=== PATIENT | female | born 1985 | race Asian ===

== ENCOUNTER → 2024-09-03 | Outpatient (CLI) | payer OTHER, SELFPAY ==
--- NOTE | 2024-09-03 | XR_ITS ---
Examination: Diagnostic digital mammography, bilateral Computer aided detection 3-D breast Tomosynthesis, bilateral Date and time of exam: September 03, 2024 1428 hours INDICATIONS: Bilateral breast lumps noticed beginning 3 months ago Technique: Nonmagnified MLO, CC views of the breasts to been obtained, reconstructed from 3-D Tomosynthesis images. R2 computer aided detection program utilized for evaluation of suspicious masses and/or abnormal calcifications. 3-D Tomosynthesis images obtained. Findings: The breasts are heterogeneously dense, which may obscure small masses Benign calcifications No definite suspicious masses Breast sonography today demonstrates multiple circumscribed small benign appearing nodules in the right breast Impression: BI-RADS Category 2: Benign findings Recommend yearly follow-up mammography Please see the right breast sonogram report today indicating probably benign BI-RADS 3 nodules right breast, 6 month right breast sonogram follow-up needed
--- NOTE | 2024-09-03 14:21 | XR_ITS ---
Examination: Breast ultrasound complete, bilateral Date and time of exam: September 03, 2024 1435 hours INDICATIONS: Multiple right breast lumps in the 12:00 position and left breast and upper outer region noticed beginning 2 days ago Technique: Real-time grayscale ultrasonographic imaging bilateral breasts, including all 4 quadrants as well as nipple retroareolar and axillary regions. Findings: Sonographic images right breast 12:00 nodule lobular margins 3 x 3 mm 1:00 nodule circumscribed 6 x 6 mm 1:00 nodule circumscribed 4 x 3 mm 2:00 nodule circumscribed 3 x 5 mm Sonographic images left breast No cystic or solid mass IMPRESSION: BI-RADS Category 3: Probably benign findings One additional 6 month right breast sonogram follow-up is needed to document stability of solid nodules described above
== END | disposition home or self-care (01) ==
PROVIDERS: PCP Internal Medicine; Referring Provider Physician Assistant Medical; Visit Provider Physician Assistant Medical
DX: R92.323 Mammographic fibroglandular density, bilateral breasts (principal); N63.15 Unspecified lump in the right breast, overlapping quadrants; N63.11 Unspecified lump in the right breast, upper outer quadrant
CPT/HCPCS: 76641; 77062; 77066; G0279

== ENCOUNTER 2024-09-23 20:38 | Emergency (ER) | payer OTHER, SELFPAY ==
[2024-09-23 21:30] VITALS: BP 111/76; PULSE 71; RESP 16; TEMP 36.8; O2SAT 97
[2024-09-23 23:40] LABS: HIV (1&2) Antibody Rapid Non-Reactive
[2024-09-24 00:04] LABS: Hepatitis B Surface Ab Reactive (Immune) (Immune); Hepatitis C Antibody Non Reactive (Non React)
--- NOTE | 2024-09-24 03:55 | PD.EDRECHK ---
ED Recheck Abnl Lab Rx-RME/HPI General Chief Complaint: General Adult/Misc Complain Stated Complaint: splashed in face with blood Time Seen by Provider: 09/23/24 21:38 Arrival date/time: 09/23/24 20:38 39F with no significant PMH presents to ED with evaluation after patient got blood on her. 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 Patient does not believe she got any in her mouth (no taste of blood) or in her eyes (she could see fine). Patient immediately showered afterward. Patient is UTD on vaccinations. HIV status of patient is negative. Limitations: no limitations Related Data Allergies Allergy/AdvReac Type Severity Reaction Status Date / Time shellfish derived Allergy Severe DIFF Verified 06/19/19 11:55 BREATHING SHRIMP Allergy Severe DIFF Uncoded 06/19/19 11:55 BREATHING Review of Systems Review of Systems Systems Reviewed: All systems reviewed, normal except as documented Constitutional Constitutional: Reports system reviewed and no additional complaints, except as documented, Denies fever(s) and Denies headache(s) ENT Ears, Nose, Mouth, and Throat: Denies disequilibrium and Denies headache(s) Cardiovascular Cardiovascular: Reports system reviewed and no additional complaints, except as documented, Denies chest pain and Denies dyspnea Respiratory Respiratory: Reports system reviewed and no additional complaints, except as documented, Denies cough and Denies dyspnea Gastrointestinal Gastrointestinal: Reports system reviewed and no additional complaints, except as documented, Denies abdominal pain, Denies nausea and Denies vomiting Neurologic Neurologic: Reports system reviewed and no additional complaints, except as documented, Denies confusion, Denies disequilibrium and Denies headache(s) Psychiatric Psychiatric: Denies confusion Past Medical History Past Medical History CARDIAC: Negative Congestive Heart Failure RESPIRATORY: Negative Chronic Obstructive Pulmonary Disease (COPD) GASTROINTESTINAL: Positive Gastrointestinal Disorders (gastritis) GENITOURINARY: Negative Renal Disease ENDOCRINE: Negative Diabetes Mellitus Type 1 or Diabetes Mellitus Type 2 Social History SMOKING STATUS: Never smoker ED Exam General Limitations: Present no limitations General appearance: Present alert and in no apparent distress Head Head exam: Present atraumatic Eye Eye exam: Present normal appearance, PERRL and EOMI ENT ENT exam: Present normal exam, normal oropharynx and mucous membranes moist Neck Neck exam: Present normal inspection, full ROM and trachea midline Chest Chest inspection: Present normal inspection and symmetric chest wall rise Respiratory Respiratory exam: Present normal lung sounds bilaterally Cardiovascular Cardiovascular exam: Present regular rate, normal rhythm and normal heart sounds Abdominal Exam Abdominal exam: Present soft and normal bowel sounds Extremities Exam Extremities exam: Present normal inspection and full ROM Back Exam Back exam: Present normal inspection and full ROM Neurological Exam Neurological exam: Present alert, oriented X3 and CN II-XII intact Psychiatric Psychiatric exam: Present normal affect and normal mood Skin Skin exam: Present warm, dry, intact and normal color Course Quality Measures none Orders Category Date Time Status HIV (1&2) Antibody Rapid Stat Lab 09/23/24 22:45 Completed Hepatitis B Surface Ab Stat Lab 09/23/24 22:45 Completed Hepatitis C Antibody Stat Lab 09/23/24 22:45 Completed Vital Signs Vital signs: Vital Signs Temperature 98.3 F 09/23/24 21:30 Pulse Rate 71 09/23/24 21:30 Respiratory Rate 16 09/23/24 21:30 Blood Pressure 111/76 09/23/24 21:30 Pulse Oximetry (%) 97 09/23/24 21:30 Oxygen Delivery Method Room Air 09/23/24 21:30 O2 at 97% on RA and WNLs Recheck / Abnormal Lab / Rx MDM Narrative MDM Narrative:: 39F with no significant PMH presents to ED with evaluation after patient got blood on her. 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 Patient does not believe she got any in her mouth (no taste of blood) or in her eyes (she could see fine). Patient immediately showered afterward. Patient is UTD on vaccinations. HIV status of patient is negative. Physical exam reveals clear conjunctiva. Normal speech and WOB. Patient is afebrile, calm, and alert. HIV neg. Hep C neg. Hep B titer+. Patient declined tdap given UTD and no open wounds. Patient also declined Hep B vaccine/IG given +titer. Patient also declined HIV PEP given source of exposure is HIV neg. 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 Patient data External records reviewed:: [facility] previous records Clinical information provided by:: patient Social determinants that could affect healthcare access:: none Patient has the following chronic illnesses:: none How is presenting disease/condition affected by chronic disease/condition?: no chronic disease Evaluation data The following diagnostics were reviewed and interpreted by me:: lab results Lab and/or radiology exams considered but not ordered:: ordered Interpretation Summary: above Medications / Prescriptions Medications or Prescriptions considered but not ordered:: not ordered Medication administrations:: n/a Consultations Consultation(s) initiated? (list below): No Diagnosis Recheck Differential Diagnosis: encounter for medication refill, encounter for wound recheck, encounter for recheck of burn, encounter for removal of sutures, warfarin-induced coagulopathy and other (exposure of hazardous bodily fluids) Most likely diagnosis given after review of the tests above:: exposure of hazardous bodily fluids Admission Indicated Admission indicated?: not indicated Admission Request Was there a request for admission?: No Disposition Plan Disposition Plan: Discharge Discharge Attestation Discharge Attestation: The patient and all family members were given an opportunity to ask questions and understood the discharge instructions. Discharge instructions specifically effects, indications for sooner follow up or return to the emergency department, and the expected course of current diagnosis. 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 Print Language: Micronesian Stand Alone Forms: Patient Portal Info Letter DEREK/KYLEE Supervising Physician KIMBERLY Supervising Physician: Dr. Yoo
== END 2024-09-24 00:16 | disposition home or self-care (01) ==
PROVIDERS: Physician Assistant; Emergency Provider Emergency Medicine; PCP Internal Medicine
DX: Z04.89 Encounter for examination and observation for other specified reasons (principal); Z77.21 Contact with and (suspected) exposure to potentially hazardous body fluids; Z71.89 Other specified counseling
CPT/HCPCS: 36415; 86703; 86706; 86803; 99283

== ENCOUNTER 2024-10-28 23:03 | Emergency (ER) | payer OTHER, SELFPAY ==
[2024-10-28 23:04] VITALS: BMI 25.9
[2024-10-28 23:41] VITALS: BP 102/66; PULSE 66; RESP 16; TEMP 36.7; O2SAT 97
--- NOTE | 2024-10-28 23:47 | PD.EDABDPN ---
ED Abdominal Pain RME/HPI General Chief Complaint: Abdominal Pain Stated complaint: ABD PAIN Time seen by provider: 10/28/24 23:45 Arrival date/time: 10/28/24 23:03 39F with history of endometriosis and GERD presents to ED with 1 day of upper ab pain after she ate something. Patient denies N/V, diarrhea, and dysuria. Patient is on her cycle. Limitations: no limitations Related Data Allergies Allergy/AdvReac Type Severity Reaction Status Date / Time shellfish derived Allergy Severe DIFF Verified 10/28/24 23:08 BREATHING SHRIMP Allergy Severe DIFF Uncoded 10/28/24 23:08 BREATHING Review of Systems Review of Systems Systems Reviewed: All systems reviewed, normal except as documented Gastrointestinal Gastrointestinal: Reports as per HPI and Reports abdominal pain Past Medical History Past Medical History CARDIAC: Negative Congestive Heart Failure RESPIRATORY: Negative Chronic Obstructive Pulmonary Disease (COPD) GASTROINTESTINAL: Positive Gastrointestinal Disorders (gastritis) GENITOURINARY: Negative Renal Disease ENDOCRINE: Negative Diabetes Mellitus Type 1 or Diabetes Mellitus Type 2 Social History SMOKING STATUS: Never smoker ED Exam General Limitations: Present no limitations General appearance: Present alert and in no apparent distress Head Head exam: Present atraumatic ENT ENT exam: Present normal exam, normal oropharynx and mucous membranes moist Neck Neck exam: Present normal inspection, full ROM and trachea midline Abdominal Exam Abdominal exam: Present soft and normal bowel sounds Neurological Exam Neurological exam: Present alert and oriented X3 Psychiatric Psychiatric exam: Present normal affect and normal mood Skin Skin exam: Present warm, dry, intact and normal color Course Quality Measures none Orders Category Date Time Status US gall bladder Stat Exams 10/29/24 00:54 Taken Amylase Stat Lab 10/28/24 23:58 Completed CBC Stat Lab 10/28/24 23:58 Completed CMP [Comprehensive Metabolic Panel] Stat Lab 10/28/24 23:58 Completed HCG Qualitative,Urine Stat Lab 10/29/24 00:06 Completed Urinalysis, C/S if Indicated Stat Lab 10/29/24 00:06 Completed Famotidine [Pepcid] Med 10/28/24 23:46 Discontinued 40 mg PO X1 ONE mg Hyd/Al Hyd/Lexy Susp [Maalox Susp] Med 10/28/24 23:46 Discontinued 30 ml PO X1 ONE Vital Signs Vital signs: Vital Signs Temperature 98.1 F 10/28/24 23:41 Pulse Rate 66 10/28/24 23:41 Respiratory Rate 16 10/28/24 23:41 Blood Pressure 102/66 10/28/24 23:41 Pulse Oximetry (%) 97 10/28/24 23:41 Oxygen Delivery Method Room Air 10/28/24 23:41 O2 at 97% on RA and WNLs Abdominal Pain MDM MDM Narrative MDM Narrative:: 39F with history of endometriosis and GERD presents to ED with 1 day of upper ab pain after she ate something. Patient denies N/V, diarrhea, and dysuria. Patient is on her cycle. Physical exam reveals no focal ab tenderness. Patient is afebrile, alert, but appears uncomfortable. Telerad US unremarkable. No leukocytosis. CMP unremarkable. Amylase normal. UA some blood, but no UTI. HCG neg. GI cocktail relieved symptoms. Patient declines further work-up including CT. Patient data External records reviewed:: [facility] previous records Clinical information provided by:: patient Social determinants that could affect healthcare access:: none Patient has the following chronic illnesses:: endometriosis and GERD How is presenting disease/condition affected by chronic disease/condition?: exacerbated by Evaluation data The following diagnostics were reviewed and interpreted by me:: lab results and radiology exam(s) Lab and/or radiology exams considered but not ordered:: ordered Interpretation Summary: above Medications / Prescriptions Medications or Prescriptions considered but not ordered:: ordered Medication administrations:: Medication Administration History Discontinued Medications Al Hydrox/Mg Hydrox/Simethicone (Mg Hyd/Al Hyd/Leyx (Maalox Reg) Susp 30 Ml Udc) 30 ml PO X1 ONE Stop: 10/28/24 23:47 Last Admin: 10/29/24 00:03 Dose: 30 ml Documented By: CELINA Famotidine (Famotidine 20 Mg Tablet) 40 mg PO X1 ONE Stop: 10/28/24 23:47 Last Admin: 10/29/24 00:03 Dose: 40 mg Documented By: CELINA above Consultations Consultation(s) initiated? (list below): No Diagnosis Differential diagnosis abdominal pain: abdominal pain, acute appendicitis, calculus of kidney, constipation, diverticulitis, endometriosis, gastroenteritis, pancreatitis, small bowel obstruction and other (gastritis and ab pain) Most likely diagnosis given after review of the tests above:: gastritis and ab pain Admission Indicated Admission indicated?: not indicated Admission Request Was there a request for admission?: No Disposition Plan Disposition Plan: Discharge Discharge Attestation Discharge Attestation: The patient and all family members were given an opportunity to ask questions and understood the discharge instructions. Discharge instructions specifically effects, indications for sooner follow up or return to the emergency department, and the expected course of current diagnosis. Patient condition: Stable Discharge Plan Plan Patient Disposition: HOME (Self Care) Discharge Disposition comment: Stable Prescriptions/Referrals Referrals: Tomy Tanner [Primary Care Provider] - In 1 week Problem List Clinical Impression: Abdominal pain, Gastritis Patient/Caregiver Discharge Instructions Education Materials: ED Abdominal Pain Unkn Cause Fem, ED Gastritis (Adult) Additional Instructions: Please follow-up with PCP within 24-48 hours and return immediately if symptoms worsen. Print Language: Uruguayan Stand Alone Forms: Patient Portal Info Letter DEREK/KYLEE Supervising Physician DEREK/KYLEE Supervising Physician: Dr. Yoo
[2024-10-29] MEDS: FAMOTIDINE 20 MG TABLET 40 MG PO (00:03)
[2024-10-29] MEDS: MG HYD/AL HYD/SIME (Maalox Reg) SUSP 30 ML UDC PO (00:03)
[2024-10-29 00:19] LABS: Collection Type, Urine Clean Catch
[2024-10-29 00:23] LABS: Basophils # (Auto) 0.0 Thou/mm3 (0.0-0.2); Basophils % (Auto) 1 % (0-2.5); Eosinophils # (Auto) 0.2 Thou/mm3 (0.0-0.5); Eosinophils % (Auto) 4 % (0-10); Hematocrit 39.4 % (36.0-46.0); Hemoglobin 12.8 g/dL (12.0-16.0); Immature Granulocytes Auto 0.02 Thou/mm3 (0.00-0.00); Lymphocytes # (Auto) 1.8 Thou/mm3 (1.0-4.8); Lymphocytes % (Auto) 30 % (10-50); Mean Corpuscular HGB Conc 32.5 g/dl (31.0-37.0); Mean Corpuscular Hemoglobin 29.9 pg (25.0-35.0); Mean Corpuscular Volume 92 fL (80-100); Monocytes # (Auto) 0.7 Thou/mm3 (0.0-0.8); Monocytes % (Auto) 12 % (0-12); Neutrophils # (Auto) 3.4 Thou/mm3 (1.8-7.7); Neutrophils % (Auto) 54 % (37-80); Nucleated Red Blood Cell # 0.00 Thou/mm3 (0.00-0.00); Nucleated Red Blood Cell % 0 /100 WBC (0); Platelet Count 188 Thou/mm3 (140-440); RDW Standard Deviation 44.1 fL (36.4-46.3); Red Blood Count 4.28 Miln/mm3 (4.00-5.20); White Blood Count 6.2 Thou/mm3 (3.6-11.0)
[2024-10-29 00:24] LABS: Bilirubin,Urine Negative (Negative); Blood,Urine 1+ (Negative); Clarity,Urine Clear (Clear/Hazy); Color,Urine Lt-Yellow (Lt Yel-Yel); Culture Indicated,Urine Not Indicated; Glucose, Urine Negative (Negative); Ketones,Urine Negative (Negative); Leukocyte Esterase,Urine Negative (Negative); Nitrite,Urine Negative (Negative); PH,Urine 6.0 (5.0-7.0); Protein,Urine Negative (Neg - Trace); RBC,Urine 3 /hpf (0-3); Specific Gravity,Urine 1.034 (1.001-1.035); Squamous Epithelial Cell,Urine 1 /hpf (0-5); Urobilinogen,Urine Negative mg/dL (0.0-1.0); WBC,Urine 1 /hpf (0-5)
[2024-10-29 00:30] LABS: HCG Qualitative,Urine Negative
[2024-10-29 00:35] LABS: Alanine Aminotransferase 13 U/L (10-49); Albumin, Serum 4.3 gm/dL (3.5-5.0); Albumin/Globulin Ratio 1.7 (1.2-2.2); Alkaline Phosphatase 76 U/L (46-116); Amylase 105 U/L (30-118); Anion Gap 9 (7-16); Aspartate Amino Transferase 23 U/L (0-34); BUN/Creatinine Ratio 20 Ratio (12-20); Bilirubin,Total 0.4 mg/dL (0.3-1.2); Blood Urea Nitrogen 20 mg/dL (9-23); Calcium 9.5 mg/dL (8.3-10.6); Calcium (Corrected) 9.5 mg/dL (8.5-10.1); Carbon Dioxide 27.4 mMol/L (20.0-31.0); Chloride 106 mMol/L (98-107); Creatinine (Component) 1.0 mg/dL (0.6-1.3); Estimated Creatinine Clearance 67.2 mL/min (>60); Globulin 2.6 gm/dL (2.3-3.5); Glucose 95 mg/dL (74-106); Osmolality,Calculated 285 (275-295); Potassium 3.4 mMol/L (3.4-5.1); Sodium 142 mMol/L (136-145); Total Protein 6.9 gm/dL (5.7-8.2); eGFR > 60 See Note
--- NOTE | 2024-10-29 00:54 | XR_ITS ---
Examination: Abdomen sonogram, Limited Date and time of exam: October 29, 2024 0104 hrs. Indications: Right upper abdominal pain beginning 4:00 PM yesterday Technique: Real-time benjamin scale transabdominal sonographic images of the upper abdomen obtained. Findings: Normal gallbladder. Normal common bile duct 0.31 cm Pancreatic head 1.4 cm Liver 14.7 cm no focal liver lesions Normal hepatopedal portal venous flow Patent IVC Impression: Normal gallbladder
[2024-10-29 01:47] VITALS: RESP 16
--- NOTE | 2024-10-29 02:35 | PRELIM_ITS ---
Right upper quadrant abdominal ultrasound with Doppler and wave Doppler spectral analysis. October 29, 2024 at 0104 hours Clinical history: Right upper quadrant/epigastric pain. Technique: Grayscale and color flow images of the right upper quadrant are provided. Hepatic and portal veins were also imaged with color flow images. Comparison: No prior study is available for comparison. Findings: The liver is normal in echogenicity. No intrahepatic biliary ductal dilatation. No gallbladder calculus, wall thickening or pericholecystic fluid is demonstrated. The common bile duct is normal in caliber at 3.1 mm. The pancreas is unremarkable to the extent visualized. The imaged portions of the right kidney are within normal limits. The portal vein is patent with hepatopetal flow and normal with Doppler spectral analysis. The inferior vena cava is patent with hepatopetal flow and normal with Doppler spectral analysis. Solorzano sign is not available at the time of this report. Impression: Unremarkable right upper quadrant ultrasound examination. No evidence of acute cholecystitis. Report Electronically Signed By: Tristian Hernandez 10/29/2024 2:34:38 AM [EST]
== END 2024-10-29 01:48 | disposition home or self-care (01) ==
PROVIDERS: Physician Assistant; Emergency Provider Emergency Medicine; PCP Internal Medicine
DX: K29.70 Gastritis, unspecified, without bleeding (principal)
CPT/HCPCS: 36415; 76705; 80053; 81001; 81025; 82150; 85025; 99283; A9270

== ENCOUNTER 2024-10-29 03:44 | Inpatient (IN) | payer OTHER, SELFPAY ==
[2024-10-29] VITALS (7 sets, daily range): BP systolic 92–128; BP diastolic 63–91; PULSE 52–117; RESP 16–18; TEMP 35.7–37; O2SAT 93–100; BMI 25.9; BMI 25.7; BMI 27.3
--- NOTE | 2024-10-29 04:04 | EDNOTE_ITS ---
ED Abdominal Pain RME/HPI General Chief Complaint: Abdominal Pain Stated complaint: PERSISTANT ABD PAIN Time seen by provider: 10/29/24 03:57 Arrival date/time: 10/29/24 03:44 RME / HPI RME / HPI narrative: Dr. Yoo?s Main ED Evaluation: 39yo female with no significant past medical history presents to the ED for a chief complaint of worsening diffuse abdominal pain. Patient was seen here earlier tonight for abdominal pain and was discharged home after her symptoms resolved. Patient states she went home and went to sleep when she was awoken with worsening abdominal pain that radiates to her back at 0300. Pain is described as burning in nature. She denies any nausea, vomiting, fever, chills, or any other associated symptoms. Allergies: shrimp Related Data Allergies Allergy/AdvReac Type Severity Reaction Status Date / Time shellfish derived Allergy Severe DIFF Verified 10/29/24 03:47 BREATHING SHRIMP Allergy Severe DIFF Uncoded 10/29/24 03:47 BREATHING Review of Systems Review of Systems Systems Reviewed: All systems reviewed, normal except as documented ED Exam Narrative Physical exam: Generally patient is alert and in mild to moderate distress secondary to pain, heart regular rate and rhythm, lungs clear to auscultation equal bilaterally, abdomen soft bowel sounds present diffusely tender without obvious rebound. There was guarding. No obvious distention. Muscular skeletal exam showed no costovertebral angle tenderness. Skin is warm pale and dry without rash. Neurologic exam Karuna Coma Scale of 15. Course Quality Measures none Orders Category Date Time Status CT abdomen pelvis wo con Stat Exams 10/29/24 04:05 Taken Lactic Acid [Lactate (Lactic Acid)] Stat Lab 10/29/24 05:20 Ordered Ketorolac Inj [Toradol Inj] Med 10/29/24 04:05 Discontinued 60 mg IM X1 ONE Piper/Tazo 3.375 gm Premix [Zosyn] Med 10/29/24 05:31 Ordered 3.375 gm in 50 ml IV X1 Sodium Chloride 0.9% 1000 ml [Ns] 1,000 ml Med 10/29/24 05:30 Ordered IV 999 mls/hr Vital Signs Vital signs: Vital Signs Temperature 97.1 F 10/29/24 04:08 Pulse Rate 78 10/29/24 04:08 Respiratory Rate 18 10/29/24 04:08 Blood Pressure 128/91 H 10/29/24 04:08 Pulse Oximetry (%) 100 10/29/24 04:08 Oxygen Delivery Method Room Air 10/29/24 04:08 Abdominal Pain MDM MDM Narrative MDM Narrative:: Scribe Attestation: 10/29/24 - Dori Zendejas am scribing for and in the presence of Dr. Yoo. I reviewed and interpreted all labs drawn on her previous ER visit. Patient has an allergy to shellfish so it was thought prudent to obtain a CT scan of the abdomen and pelvis without contrast. The allergy to this shellfish is difficulty breathing and hives. CT scan done the abdomen pelvis without contrast shows evidence of a whirlpool sign which would be significant for mesenteric volvulus with possible ischemia. Patient was hydrated with a liter of normal saline and given Zosyn 3.375 g IV. I discussed this case with general surgeon on-call, Dr. Villarreal who will consult on this case and who asked for the patient to be admitted to the hospitalist. I will discuss this case with the hospitalist and the patient will need to be admitted to the hospital for further treatment and evaluation for this probable mesenteric volvulus with ischemia. Lactic acid level is pending. The patient and her were notified of the need for hospitalization and possible surgery. Patient data External records reviewed:: [facility] previous records (Per chart review, patient was seen here earlier tonight for abdominal pain.) Clinical information provided by:: patient Social determinants that could affect healthcare access:: none Patient has the following chronic illnesses:: none How is presenting disease/condition affected by chronic disease/condition?: no chronic disease Evaluation data The following diagnostics were reviewed and interpreted by me:: lab results and radiology exam(s) Lab and/or radiology exams considered but not ordered:: none Interpretation Summary: Telerad Preliminary Report Draft Patient: WILLIAM HOWELL Record#: [id number] Birthdate: 1985 Age/Sex: 39 / F Location: [facility] Attending Dr: Ordering Physician: Date of Service: Procedure(s): Accession Number(s): cc: ~ CT scan of the abdomen and pelvis without intravenous contrast (axial sections with sagittal and coronal reformats). October 29, 2024 at 0418 hours Clinical History: Abdominal pain. Correlation: Correlated with the prior ultrasound study dated October 29, 2024. Findings: The lung bases are clear. The liver, gallbladder, pancreas, spleen, kidneys and adrenals are unremarkable on this noncontrast study. No evidence of bowel obstruction. The appendix is within normal limits. There is no mesenteric or retroperitoneal adenopathy. The urinary bladder is unremarkable. There is no free air. Small amount of free fluid in the pelvis. The osseous structures are unremarkable. Mesenteric whirlpool sign associated with mesentery edema. Impression: 1. Mesenteric Whirlpool sign associated with mesentery edema. 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 Urgent surgical consult is recommended. 2. Small ascites. 3. No evidence of kidney or ureteral stones. Discussion Details: Results verbally communicated to : Dr. Yoo at 05:10 AM 10/29/2024 Report Electronically Signed By: Tristian Hernandez 10/29/2024 5:21:04 AM [EST] Medications / Prescriptions Medications or Prescriptions considered but not ordered:: none Medication administrations:: Medication Administration History Sodium Chloride (Ns) 1,000 mls @ 999 mls/hr IV .Q1H1M ONE Stop: 10/29/24 06:30 Piperacillin/Tazobactam/Dextrose (Zosyn) 3.375 gm in 50 mls @ 100 mls/hr IV X1 ONE; Protocol Stop: 10/29/24 06:00 Discontinued Medications Ketorolac Tromethamine (Ketorolac Inj 60 Mg/2 Ml Vial) 60 mg IM X1 ONE Stop: 10/29/24 04:06 Last Admin: 10/29/24 04:22 Dose: 60 mg Documented By: DT see above Consultations Consultation(s) initiated? (list below): Yes Diagnosis Differential diagnosis abdominal pain: other (See MDM.) Most likely diagnosis given after review of the tests above:: see clinical impression below Admission Indicated Admission indicated?: indicated Admission Request Was there a request for admission?: Yes Admission Attestation Admission request attestation: Discussed case with [] from Hospitalist service regarding admission. Discussed patients ED course, exam findings, labs, and radiology results. The Hospitalist [agrees,declines] to accept the patient for admission. Disposition Plan Disposition Plan: Admit Critical Care Time Critical Care Time Critical Care Time: Yes Total Critical Care Time (min.): 35 Attestation: Excluding other billable procedures Discharge Plan Plan Patient Disposition: Admit Acute Care w/in Hospital Prescriptions/Referrals Referrals: Kirill Bahena DO [Primary Care Provider, Family Practice] - In 1 week Problem List Clinical Impression: Mesenteric ischemia Patient/Caregiver Discharge Instructions Print Language: Portuguese Stand Alone Forms: Charlee Award Info., Patient Portal Info Letter
--- NOTE | 2024-10-29 04:05 | XR_ITS ---
Examination: CT abdomen and pelvis without contrast. Coronal 3-D reconstructions. Sagittal 2-D reconstructions. Date and time of exam:October 29, 2024 at 1418 hrs. Indications: Onset abdominal pain today CTDI: vol (mGy): 6.16 DLP: (mGycm): 345 Technique: Axial images of the abdomen have been obtained, 3 mm slice thickness Intravenous contrast material has not been administered. Low dose protocols were performed. One or more of the following dose reduction techniques were used; automated exposure control, adjustment of the mA and/or KV according to patient size, use of iterative reconstruction technique. Findings: No focal liver or splenic lesion No gallstones No pancreatic mass No renal or ureteral calculi, no hydronephrosis Normal appendix There is rotation of the mesentery with edema, for instance axial image 131, with free fluid in the pelvis and throughout the abdomen The fundus of uterus is enlarged The osseous structures are intact Impression: Mild ascites Abnormal mesentery, rotation of the mesentery with edema, differential would include inflammation in the mesentery, mesenteric ischemia not excluded Recommend repeating this study with intravenous and oral contrast
[2024-10-29] MEDS: KETOROLAC INJ 60 MG/2 ML VIAL IM (04:22)
--- NOTE | 2024-10-29 05:21 | PRELIM_ITS ---
CT scan of the abdomen and pelvis without intravenous contrast (axial sections with sagittal and coronal reformats). October 29, 2024 at 0418 hours Clinical History: Abdominal pain. Correlation: Correlated with the prior ultrasound study dated October 29, 2024. Findings: The lung bases are clear. The liver, gallbladder, pancreas, spleen, kidneys and adrenals are unremarkable on this noncontrast study. No evidence of bowel obstruction. The appendix is within normal limits. There is no mesenteric or retroperitoneal adenopathy. The urinary bladder is unremarkable. There is no free air. Small amount of free fluid in the pelvis. The osseous structures are unremarkable. Mesenteric whirlpool sign associated with mesentery edema. Impression: 1. Mesenteric Whirlpool sign associated with mesentery edema. 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 Urgent surgical consult is recommended. 2. Small ascites. 3. No evidence of kidney or ureteral stones. Discussion Details: Results verbally communicated to : Dr. Yoo at 05:10 AM 10/29/2024 Report Electronically Signed By: Tristian Hernandez 10/29/2024 5:21:04 AM [EST]
[2024-10-29] MEDS: PIPER/TAZO 3.375 GM PREMIX 3.375 GM/50 ML BAG IV (05:43)
[2024-10-29] MEDS: SODIUM CHLORIDE 0.9% 1000 ML 1,000 ML 999 ML IV ×2 (05:43→06:11)
[2024-10-29 05:47] LABS: Lactate (Lactic Acid) 0.8 mMol/L (0.4-2.0)
[2024-10-29] MEDS: MORPHINE SULF INJ 4 MG/ML VIAL IVP ×2 (05:51→06:00)
--- NOTE | 2024-10-29 06:04 | PD.RESHP ---
Documentation for date of: 10/29/24 HPI History of Present Illness Chief complaint: Severe abdominal pain History of present illness: Miss Carrington is a 39-year-old female with no significant past medical history who presents to the [facility] Emergency Department on 10/29/2024 with a chief complaint of worsening diffuse abdominal pain. The patient was evaluated earlier in the evening for similar symptoms and discharged after symptom resolution. She returned this morning due to worsening abdominal pain. She reports that she went home and went to sleep, but was awakened around 3:00 AM by severe abdominal pain radiating to her back. Described the pain as burning throughout abdominal area. Patient send while in the ED after being repositioning the pain worsened on her back, the pain worsened severely. She denies nausea, vomiting, diarrhea, or dysuria. She is currently on her menstrual cycle.. History is limited due to excruciating pain Of note, the patient reports she has been actively training for a marathon. ED Course: -Initial vitals were BP 128/91 pulse 70, RR 18, temp 97.1, O2 sat 100% on room air -Labs no leukocytosis. CMP unremarkable. Amylase normal. UA some blood, but no UTI. HCG neg. -Imaging included CT abd/pelvis shows mesenteric Whirlpool sign associated with mesentery edema. Suspicious for long-axis volvulus of the mesentery and mesenteric ischemia. -In the ED, patient was given ketorolac, morphine, Dilaudid -ED doctor consulted Dr. Villarreal and said to admit for surgery this morning. -Patient was admitted for acute mesenteric ischemic management Review of Systems Review of systems otherwise negative except what is mentioned above. Past Medical History: Endometriosis and GERD? Family History: Noncontributory Surgical History: None, no previous abdominal surgery Social History: Denies history of smoking denies recreational drug use. Occasional social drinker. Vaginal births, Current Medications: Zoloft and Pepcid Allergies: Shrimp Exam Vital Signs Temp Pulse Resp BP Pulse Ox O2 Del Method 98.6 F 117 H 18 112/85 H 99 Room Air 10/29/24 06:03 10/29/24 06:03 10/29/24 06:03 10/29/24 06:03 10/29/24 06:03 10/29/24 06:03 Narrative Exam General: Alert, severe distress secondary to pain Skin: Warm, dry, intact. No rash or ecchymoses. Head: Normocephalic, atraumatic. Eye: Normal conjunctiva, PERRL. Throat: Dry mucosa moist. No obvious lesions in oropharynx. Cardiovascular: Regular rate and rhythm, no murmur, +S1/S2. Respiratory: Lungs are clear to auscultation, respirations unlabored, no crackles, no wheezing. Gastrointestinal: diffusely tender without obvious rebound, guarding present Extremities: No edema, no cyanosis, no clubbing. Neuro: Alert and oriented x3.No focal deficits observed. Conversant, moving all extremities. No overt cerebellar signs/incoordination. Psychiatric: Cooperative, appropriate affect Results: Labs 10/29/24 06:56 10/29/24 06:56 Quality Measures Quality Measures none Medications Home Medications and Allergies Home Medications ?Medication ?Instructions ?Recorded ?Confirmed ?Type cetirizine 10 mg capsule (Zyrtec) 10 mg PO QDAY PRN hives 10/29/24 10/29/24 History Allergies Allergy/AdvReac Type Severity Reaction Status Date / Time shellfish derived Allergy Severe DIFF Verified 10/29/24 03:47 BREATHING SHRIMP Allergy Severe DIFF Uncoded 10/29/24 03:47 BREATHING Visit Medications Acetaminophen (Acetaminophen 325 Mg Tablet) 650 mg PO Q6H PRN PRN Reason: PAIN SCALE 1-3 (mild Stop: 11/28/24 06:01 Hydromorphone HCl (Hydromorphone Inj 2 Mg/Ml Vial) 1 mg IVP X1 ONE Stop: 10/29/24 06:04 Hydromorphone HCl (Hydromorphone Inj 2 Mg/Ml Vial) 1 mg IVP Q4HR PRN PRN Reason: PAIN SCALE 7-10 Stop: 11/03/24 06:02 Sodium Chloride (Ns) 1,000 mls @ 999 mls/hr IV .Q1H1M ONE Stop: 10/29/24 06:30 Last Admin: 10/29/24 05:43 Dose: 999 mls/hr Acetaminophen (Ofirmev Inj) 1,000 mg in 100 mls @ 250 mls/hr IV Q6HR PRN PRN Reason: Fever >100.4 or Pain 1-4 Morphine Sulfate (Morphine Sulf Inj 4 Mg/Ml Vial) 2 mg IVP Q4HR PRN PRN Reason: PAIN SCALE 4-6 Stop: 11/03/24 06:02 Ondansetron HCl (Ondansetron Inj 2 Mg/Ml Inj 2 Ml) 4 mg IVP Q6H PRN; Protocol PRN Reason: NAUSEA OR VOMITING Stop: 11/28/24 06:01 Pantoprazole Sodium (Pantoprazole Inj 40 Mg Vial) 40 mg IVP QDAY NICK Stop: 11/28/24 08:59 Discontinued Medications Piperacillin/Tazobactam/Dextrose (Zosyn) 3.375 gm in 50 mls @ 100 mls/hr IV X1 ONE; Protocol Stop: 10/29/24 06:00 Last Admin: 10/29/24 05:43 Dose: 100 mls/hr Ketorolac Tromethamine (Ketorolac Inj 60 Mg/2 Ml Vial) 60 mg IM X1 ONE Stop: 10/29/24 04:06 Last Admin: 10/29/24 04:22 Dose: 60 mg Morphine Sulfate (Morphine Sulf Inj 4 Mg/Ml Vial) 4 mg IVP X1 ONE Stop: 10/29/24 05:44 Last Admin: 10/29/24 05:51 Dose: 4 mg Morphine Sulfate (Morphine Sulf Inj 4 Mg/Ml Vial) 4 mg IVP X1 ONE Stop: 10/29/24 05:57 Last Admin: 10/29/24 06:00 Dose: 4 mg Assessment & Plan Plan Miss Carrington is a 39-year-old female with no significant past medical history who presents to the [facility] Emergency Department on 10/29/2024 with a chief complaint of worsening diffuse abdominal pain. Admitted for mesenteric ischemia management #Intractable abdominal pain #Mesenteric Volvulus #R/O mesenteric ischemia Patient presented with worsening 1 day abdominal pain that is excruciating abdominal pain out proportion to physical exam, guarding present with no rebound tenderness. Lactic acid 0.8 CT abd/pelvis shows mesenteric Whirlpool sign associated with mesentery edema. Suspicious for long-axis volvulus of the mesentery and mesenteric ischemia. In ED patient was treated aggressively with pain regimens (ketorolac, Dilaudid, fentanyl) and IV fluid resuscitation. Received methylprednisolone 125 mg x 1, diphenhydramine IVP 50 mg x1 - IV hydrations with D5-NS - Pain control Dilaudid 2 mg IVP Q4H as needed, morphine 2 mg IVP Q4H prn - Continue Zosynon - Protonix 40mg IVP - Zofran 4 mg IVP for nausea/vomiting - Dr. Villarreal consulted- NPO, OR today #Dyspepsia Continue home Pepcid as needed. Hospital management: Lines: peripheral IV Diet: npo GI prophylaxis: pantoprazole DVT prophylaxis: NA Disposition: OR soon for acute mesenteric ischemia CODE STATUS: Full code Patient seen and assessed under supervision of attending physician Dr.Alhalaibeh Melisa Isaacs MD PGY-1, Internal Medicine Please note: this document was transcribed using voice recognition technology; minor inaccuracies may be present. Attending Provider Attestation/Addendum After examination of the patient and review of the clinical data I feel that this patient needs admission to the hospital for further treatment/evaluation. Plan of care discussed with patient and is in agreement. I Tiffany Britt MD, attest that I was physically present for ayala portions of evaluation, and examined patient, labs and imagings and plan of care were discussed with IM residents team, and I agree with the findings and plans documented above.
[2024-10-29] MEDS: HYDROmorphone INJ 2 MG/ML VIAL 1 MG IVP ×2 (06:08→06:17)
[2024-10-29] MEDS: DEXTROSE 5%-NS 1,000 ML 80 ML IV ×2 (06:17→23:57)
--- NOTE | 2024-10-29 06:40 | PC.NURSE ---
SURGEON AT BEDSIDE SPEAKING WITH PATIENT
--- NOTE | 2024-10-29 06:52 | PD.SURCONS ---
HPI Consult details Consult date: 10/29/24 Reason for consultation narrative: Abdominal pain History of present illness: 39 yo female with history of GERD and endometriosis presented to ED with worsening abdominal pain. She was seen here last tonight for abdominal pain and was discharged home after her symptoms resolved. She denies history of trauma, recent travel or similar symptoms in the past. She also denies wt loss, nausea, vomiting, fever, chills, diarrhea, constipation or dysuria. She states that her symptoms started after she ate her oatmeal. CT scan read by teleradiologist shows Whirlpool sign associated with mesentery edema. Suspicious for long-axis volvulus of the mesentery and mesenteric ischemia. Review of Systems Constitutional Constitutional: Denies chills, Denies fever(s) and Denies weight loss Cardiovascular Cardiovascular: Denies chest pain Respiratory Respiratory: Denies cough Gastrointestinal Gastrointestinal: Reports abdominal pain, Denies nausea and Denies vomiting Genitourinary Genitourinary: Denies difficulty voiding Hematologic/Lymphatic Hematologic/Lymphatic: Denies easy bleeding and Denies easy bruising Past Medical History Surgical History OTHER SURGICAL HX: No surgeries in the past Social History SMOKING STATUS: Never smoker SUBSTANCE USE: does not use ALCOHOL: Never Meds Home Medications and Allergies Allergies Allergy/AdvReac Type Severity Reaction Status Date / Time shellfish derived Allergy Severe DIFF Verified 10/29/24 03:47 BREATHING SHRIMP Allergy Severe DIFF Uncoded 10/29/24 03:47 BREATHING Exam Vital Signs Temp Pulse Resp BP Pulse Ox O2 Del Method 98.6 F 117 H 18 112/85 H 99 Room Air 10/29/24 06:03 10/29/24 06:03 10/29/24 06:03 10/29/24 06:03 10/29/24 06:03 10/29/24 06:03 Constitutional Constitutional: moderate distress Routine Abdominal Exam Abdominal: Present soft, normoactive bowel sounds and tenderness (very minimal tenderness to deep palpation. No rebound tenderness or peritonitis at this time); Absent distended Results Results: Laboratory Laboratory results: results reviewed Results: Imaging CT scan - abdomen: report reviewed and image reviewed CT scan - pelvis: report reviewed and image reviewed Assessment & Plan Problem List (1) Generalized abdominal pain: Status: Acute Additional Assessment Additional comments: Her physical exam is benign, to me her CT scan is unremakable except large stool throughout the colon. Plan Keep her NPO with IVF. Start with dulcolax suppository. Will review CT scan with our radiologist. Will re-examine her later today.
[2024-10-29] MEDS: MethylPREDNISolone SOD SUCC 62.5 MG/ML 2ML VIAL 125 MG IVP (07:07)
[2024-10-29] MEDS: fentaNYL CIT INJ 50 mCg/ML AMP 2ML 25 MCG IVP (07:08)
[2024-10-29] MEDS: ONDANSETRON INJ 2 MG/ML INJ 2 ML 4 MG IVP (07:11)
[2024-10-29 07:25] LABS: INR 1.0 (0.9-1.3); Partial Thromboplastin Time 26.7 Seconds (22.0-36.0); Prothrombin Time 11.4 Seconds (9.0-12.2)
--- NOTE | 2024-10-29 08:31 | ESPR_ITS ---
<Statement entered by Nai Aguilar MD - 11/04/24 17:36> I reviewed above note and agree with findings and plans. I have also personally examined the patient with medicine team and went over assessment and plan with medical team including inclusion internship and resident physician. <Statement entered by Bella Hinojosa MD - 10/29/24 17:38> I discussed with and supervised the inclusion internship physician who took care of this patient. I personally saw and examined the patient and discussed the assessment and plan with the entire medicine team, including my attending Dr. Aguilar, I agree with most of the assessment and plan as documented below Bella Hinojosa M.D. PGY-3 Documentation for date of: 10/29/24 Subjective Subjective Interval history: Ms. Carrington is a 39-year-old female with no significant past medical history who presents to the [facility] Emergency Department on 10/29/2024 with a chief complaint of worsening diffuse abdominal pain. Admitted for mesenteric ischemia management 10/29/2024: Patient seen and examined at bedside. She is laying on her right side in a position and reports not having acute pain (well controlled with fentanyl given). She reports having diffuse lower abdominal pain. Ducolax suppository was given at 0700, and pt denies passing gas or stool yet. Dr. Villarreal has evaluated patient while in the ED and plans to reassess later today. NPO with IVF. Given metaclopramide for nausea. pending ctap w iv and oral contrast. Exam Vital Signs Temp Pulse Resp BP Pulse Ox O2 Del Method 98.6 F 117 H 18 112/85 H 99 Room Air 10/29/24 06:03 10/29/24 06:03 10/29/24 06:03 10/29/24 06:03 10/29/24 06:03 10/29/24 06:03 Narrative Exam pain is well controlled given recent iv pain meds given. General: Alert, mild distress secondary to pain, laying on right side in position Skin: Warm, dry, intact. No rash or ecchymoses. Head: Normocephalic, atraumatic. Eye: Normal conjunctiva, PERRL. Throat: Dry mucosa. No obvious lesions in oropharynx. Cardiovascular: Regular rate and rhythm, no murmur, +S1/S2. Respiratory: Lungs are clear to auscultation, respirations unlabored, no crackles, no wheezing. Gastrointestinal: Soft, nontender (on pain meds), (c/o lower abdomen diffuse pain). no rebound, guarding present menstruating Extremities: No edema, no cyanosis, no clubbing. Neuro: Alert and oriented x3.No focal deficits observed. Conversant, moving all extremities. No overt cerebellar signs/incoordination. Psychiatric: Cooperative, appropriate affect Objective Labs 10/29/24 06:56 10/29/24 06:56 Labs: Laboratory Results - last 24 hr 10/29/24 10/29/24 05:37 06:56 PT 11.4 INR 1.0 APTT 26.7 Lactic Acid 0.8 Quality Measures Quality Measures none Assessment & Plan Assessment Current Active Medications: Generic Name Dose Route Start Last Admin Trade Name Freq PRN Reason Stop Dose Admin Acetaminophen 650 mg 10/29/24 06:02 Acetaminophen 325 Mg Tablet PO 11/28/24 06:01 Q6H PRN PAIN SCALE 1-3 (mild Hydromorphone HCl 2 mg 10/29/24 06:10 Hydromorphone Inj 2 Mg/Ml Vial IVP 11/03/24 06:02 Q4HR PRN PAIN SCALE 7-10 Acetaminophen 1,000 mg in 100 mls @ 250 mls/hr 10/29/24 06:03 Ofirmev Inj IV Q6HR PRN Fever >100.4 or Pain 1-3 Protocol Dextrose/Sodium Chloride 1,000 mls @ 80 mls/hr 10/29/24 06:15 10/29/24 06:17 D5-Ns IV 11/28/24 06:14 80 mls/hr .[id number] NICK Administration Morphine Sulfate 2 mg 10/29/24 06:03 Morphine Sulf Inj 4 Mg/Ml Vial IVP 11/03/24 06:02 Q4HR PRN PAIN SCALE 4-6 Ondansetron HCl 4 mg 10/29/24 06:02 10/29/24 07:11 Ondansetron Inj 2 Mg/Ml Inj 2 Ml IVP 11/28/24 06:01 4 mg Q6H PRN Administration NAUSEA OR VOMITING Protocol Pantoprazole Sodium 40 mg 10/29/24 09:00 Pantoprazole Inj 40 Mg Vial IVP 11/28/24 08:59 QDAY NICK Plan Miss Carrington is a 39-year-old female with pmh of gerd, urticaria, and endometriosis who presents to the [facility] Emergency Department on 10/29/2024 with a chief complaint of worsening diffuse abdominal pain. Admitted for mesenteric ischemia vs volvulus vs endometriosis flare, whose last BM was @ 2200 10/28 despite ducolax suppository. #Diffuse abdominal pain secondary to #?Mesenteric Ischemia vs? 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 Lactic acid 0.8 CT abd/pelvis shows mesenteric Whirlpool sign associated with mesentery edema. Suspicious for long-axis volvulus of the mesentery and mesenteric ischemia. In ED patient was treated aggressively with pain regimens (ketorolac, Dilaudid, fentanyl) and IV fluid resuscitation. Received methylprednisolone 125 mg x 1, diphenhydramine IVP 50 mg x1 - IV hydrations with D5-NS - Pain control Dilaudid 2 mg IVP Q4H as needed, morphine 2 mg IVP Q4H prn (pain previously resolved with 25 mcg fentanyl x1 IVP) - Protonix 40mg IVP - Zofran 4 mg IVP for nausea/vomiting - metaclopramide 10mg IVP x1 for nausea - ducolax suppository x1 - lactulose OR x1 - Dr. Villarreal consulted- NPO, reassess pt today - pending CTAP with iv and oral contrast Urticaria at home patient reports taking cetirazine 10 mg qd , not on formulary here - loratidine 10 mg qd GERD at home patient takes famotidine 20 - on protonix iv 40 while inpatient Hospital management: Lines: peripheral IV Diet: npo GI prophylaxis: pantoprazole DVT prophylaxis: NA Disposition: npo with ivf, pending re evaluation with Dr. Villarreal, pending BM, pending CTAP w iv and po contrast. CODE STATUS: Full code Plan discussed with Dr Hinojosa, and Dr. Jeff Vu MD PGY1
[2024-10-29 09:05] LABS: Basophils # (Auto) 0.0 Thou/mm3 (0.0-0.2); Basophils % (Auto) 1 % (0-2.5); Eosinophils # (Auto) 0.1 Thou/mm3 (0.0-0.5); Eosinophils % (Auto) 2 % (0-10); Hematocrit 39.3 % (36.0-46.0); Hemoglobin 13.1 g/dL (12.0-16.0); Immature Granulocytes Auto 0.01 Thou/mm3 (0.00-0.00); Lymphocytes # (Auto) 2.0 Thou/mm3 (1.0-4.8); Lymphocytes % (Auto) 34 % (10-50); Mean Corpuscular HGB Conc 33.3 g/dl (31.0-37.0); Mean Corpuscular Hemoglobin 30.0 pg (25.0-35.0); Mean Corpuscular Volume 90 fL (80-100); Monocytes # (Auto) 0.5 Thou/mm3 (0.0-0.8); Monocytes % (Auto) 8 % (0-12); Neutrophils # (Auto) 3.3 Thou/mm3 (1.8-7.7); Neutrophils % (Auto) 56 % (37-80); Nucleated Red Blood Cell # 0.00 Thou/mm3 (0.00-0.00); Nucleated Red Blood Cell % 0 /100 WBC (0); Platelet Count 189 Thou/mm3 (140-440); RDW Standard Deviation 42.7 fL (36.4-46.3); Red Blood Count 4.36 Miln/mm3 (4.00-5.20); White Blood Count 5.9 Thou/mm3 (3.6-11.0)
--- NOTE | 2024-10-29 09:19 | PC.SS ---
Patient Lucina Carrington is a Year old female admitted for Acute Mesenteric Ischemia. SS met with patient at bedside to discuss discharge plan. Patient reports she lives at -home with her , Brad Mueller who she reports is her surrogate decision maker, . Patient reports she is able to complete all ADL's independently. choice of pharmacy is [facility], PCP is [facility] in [place]. At time of discharge patient will return back home, will provide transportation. Discharge plan: Home Next of kin Brad Mueller [phone] PCP: [facility]
[2024-10-29 09:28] LABS: Alanine Aminotransferase 13 U/L (10-49); Albumin, Serum 3.7 gm/dL (3.5-5.0); Albumin/Globulin Ratio 1.8 (1.2-2.2); Alkaline Phosphatase 61 U/L (46-116); Anion Gap 10 (7-16); Aspartate Amino Transferase 23 U/L (0-34); BUN/Creatinine Ratio 16 Ratio (12-20); Bilirubin,Total 0.7 mg/dL (0.3-1.2); Blood Urea Nitrogen 14 mg/dL (9-23); Calcium 8.2 mg/dL (8.3-10.6); Calcium (Corrected) 8.4 mg/dL (8.5-10.1); Carbon Dioxide 21.0 mMol/L (20.0-31.0); Chloride 111 mMol/L (98-107); Creatinine (Component) 0.9 mg/dL (0.6-1.3); Estimated Creatinine Clearance 80.3 mL/min (>60); Globulin 2.1 gm/dL (2.3-3.5); Glucose 141 mg/dL (74-106); Osmolality,Calculated 285 (275-295); Potassium 3.6 mMol/L (3.4-5.1); Procalcitonin 0.05 ng/ml (0.0-0.49); Sodium 142 mMol/L (136-145); Total Protein 5.8 gm/dL (5.7-8.2); eGFR > 60 See Note
[2024-10-29] MEDS: LACTULOSE SYRUP 20 GM/30 ML UDC PO (11:05)
--- NOTE | 2024-10-29 11:21 | XR_ITS ---
Examination: CT abdomen with intravenous contrast CT pelvis with intravenous contrast 2-D coronal reconstructions 2-D sagittal reconstructions Date and time of exam:October 29, 2024 at 1536 hrs. Comparison: 10/29/2024 0419 hrs. Indications: Abnormal mesentery, rotation of the mesentery with edema on noncontrast CT study this morning. CTDI: vol (mGy) 7.32 DLP: (mGycm) 361 Technique: Multiple axial sections of the abdomen and pelvis have been obtained. 64 slice high-resolution scanner used. 3 mm axial sections have been obtained, post intravenous injection 60 cc Isovue-370, 80 cc dilute Gastrografin 2-D sagittal, coronal reconstructions obtained. Low dose protocols were performed. One or more of the following dose reduction techniques were used; automated exposure control, adjustment of the mA and/or KV according to patient size, use of iterative reconstruction technique. Findings: No focal liver or splenic lesions No gallstones No pancreatic mass No renal or ureteral calculi, no hydronephrosis Aorta normal size Abundant stool in the colon Rotation of the mesentery again depicted but no small bowel obstruction or ischemic small bowel noted The rectal wall on this study does appear mildly thickened, proctitis pattern There is fluid above the bladder and anterior to the fundus of the uterus, recommend pelvic sonography to exclude 5.4 cm cystic mass Impression: There remains rotation of the mesentery, partial malrotation, however, no small bowel obstruction or ischemic small bowel noted Mild proctitis pattern Recommend pelvic sonography to exclude 5.4 cm pelvic cyst
[2024-10-29] MEDS: METOCLOPRAMIDE INJ 5 MG/ML VIAL 2 ML 10 MG IVP (12:41)
--- NOTE | 2024-10-29 13:47 | PC.SS ---
Rounding: Dr. Villarreal consulting, working up abd pain. DC plan home
--- NOTE | 2024-10-29 16:16 | PD.SURPROG ---
Documentation for date of: 10/29/24 Subjective Subjective Narrative: Pt is seen and examined. She states that her pain is much improved, but she had an episode of emesis Exam Vital Signs Temp Pulse Resp BP Pulse Ox O2 Del Method 96.4 F L 57 L 16 92/63 96 Room Air 10/29/24 11:10 10/29/24 11:10 10/29/24 11:10 10/29/24 11:10 10/29/24 11:10 10/29/24 11:10 Constitutional Constitutional: no acute distress Routine Abdominal Exam Abdominal: Present soft, normoactive bowel sounds and tenderness (Minimal tenderness to deep palpation. No rebound tenderness or peritonitis at this time); Absent distended Assessment & Plan Plan Keep NPO with IVF. Repeat CT with oral and IV contrast.
[2024-10-30] VITALS: BP 107/71; PULSE 54; RESP 17; TEMP 36.3; O2SAT 99
[2024-10-30 03:55] VITALS: PULSE 49
[2024-10-30 04:00] VITALS: BP 97/67; PULSE 50; RESP 17; TEMP 36.5; O2SAT 97
[2024-10-30 05:28] LABS: Basophils # (Auto) 0.0 Thou/mm3 (0.0-0.2); Basophils % (Auto) 1 % (0-2.5); Eosinophils # (Auto) 0.1 Thou/mm3 (0.0-0.5); Eosinophils % (Auto) 1 % (0-10); Hematocrit 38.1 % (36.0-46.0); Hemoglobin 12.4 g/dL (12.0-16.0); Immature Granulocytes Auto 0.02 Thou/mm3 (0.00-0.00); Lymphocytes # (Auto) 2.7 Thou/mm3 (1.0-4.8); Lymphocytes % (Auto) 32 % (10-50); Mean Corpuscular HGB Conc 32.5 g/dl (31.0-37.0); Mean Corpuscular Hemoglobin 30.3 pg (25.0-35.0); Mean Corpuscular Volume 93 fL (80-100); Monocytes # (Auto) 0.7 Thou/mm3 (0.0-0.8); Monocytes % (Auto) 8 % (0-12); Neutrophils # (Auto) 4.8 Thou/mm3 (1.8-7.7); Neutrophils % (Auto) 58 % (37-80); Nucleated Red Blood Cell # 0.00 Thou/mm3 (0.00-0.00); Nucleated Red Blood Cell % 0 /100 WBC (0); Platelet Count 200 Thou/mm3 (140-440); RDW Standard Deviation 45.1 fL (36.4-46.3); Red Blood Count 4.09 Miln/mm3 (4.00-5.20); White Blood Count 8.3 Thou/mm3 (3.6-11.0)
[2024-10-30 05:51] LABS: Alanine Aminotransferase 13 U/L (10-49); Albumin, Serum 3.8 gm/dL (3.5-5.0); Albumin/Globulin Ratio 1.9 (1.2-2.2); Alkaline Phosphatase 51 U/L (46-116); Anion Gap 7 (7-16); Aspartate Amino Transferase 17 U/L (0-34); BUN/Creatinine Ratio 9 Ratio (12-20); Bilirubin,Total 0.4 mg/dL (0.3-1.2); Blood Urea Nitrogen 10 mg/dL (9-23); Calcium 8.7 mg/dL (8.3-10.6); Calcium (Corrected) 8.9 mg/dL (8.5-10.1); Carbon Dioxide 26.7 mMol/L (20.0-31.0); Chloride 112 mMol/L (98-107); Creatinine (Component) 1.1 mg/dL (0.6-1.3); Estimated Creatinine Clearance 62.6 mL/min (>60); Globulin 2.0 gm/dL (2.3-3.5); Glucose 104 mg/dL (74-106); Magnesium 2.1 mg/dL (1.6-2.6); Osmolality,Calculated 289 (275-295); Phosphorous 2.9 mg/dL (2.4-5.1); Potassium 3.7 mMol/L (3.4-5.1); Sodium 146 mMol/L (136-145); Total Protein 5.8 gm/dL (5.7-8.2); eGFR > 60 See Note
[2024-10-30 07:54] VITALS: BP 117/76; PULSE 72; RESP 15; TEMP 36.6; O2SAT 99
--- NOTE | 2024-10-30 09:23 | ESDS_ITS ---
<Statement entered by Nai Aguilar MD - 11/04/24 17:39> I reviewed above note and agree with findings and plans. I have also personally examined the patient with medicine team and went over assessment and plan with medical team including electrical engineering intern and resident physician. <Statement entered by Bella Hinojosa MD - 10/30/24 14:39> I discussed with and supervised the electrical engineering intern physician who took care of this patient. I personally saw and examined the patient and discussed the assessment and plan with the entire medicine team, including my attending Dr. Aguilar, I agree with most of the assessment and plan as documented below Bella Hinojosa M.D. PGY-3 Disclaimer: Despite multiple revisions, due to the dictation software being used, the document bellow may not be free of grammatical errors including phonetic/typographic errors. However, this does not deter from our commitment to providing health care in the patient's best interest in mind. Planned Discharge Date 10/30/24 DS: Providers Provider Date of admission: 10/29/24 06:22 Primary care physician: Kirill Bahena DO Admitting Provider: Tiffany Britt MD Attending Provider on Admission: Tiffany Britt MD Consults: 10/29/24 06:04 Consult to General Surgery Stat Comment: Acute mesenteric ischemia Consulting Provider: Thor Villarreal Attending Provider on DC: Jeff BALBUENA Discharging Provider: MD Jeff DS: Diagnosis Problem List Completed Was Problem List Reviewed/Reconciled?: Yes Hospital Course Hospital Course Hospital course: Hospital Course Ms. 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 Admitted for mesenteric ischemia vs volvulus vs endometriosis flare. General surgery was consulted, who recommended no surgery. She was kept NPO with IVF, given suppository and lactulose. She had BM and resolution of abdominal pain. CTAP with oral and iv contrast showed no sbo and no mesenteric ischemia, and found 5.4 cm pelvic cyst. She was able to tolerate diet. Patient stable and medically cleared for discharge Discharge instructions follow up with your pcp in 1-2 weeks follow up with your obgyn for pelvic cyst found on ctap, for outpatient US continue taking your home medications as prescribed Diagnoses Diffuse abdominal pain suspect ruptured pelvic cyst Urticaria GERD Plan discussed with Dr Hinojosa, and Dr. Jeff Vu MD PGY1 Time Spent with Patient Time attestation: Total time spent providing and/or coordinating discharge services: Time spent: Greater than 30 minutes Exam Vital Signs Temp Pulse Resp BP Pulse Ox O2 Del Method 97.8 F 72 15 117/76 99 Room Air 10/30/24 07:54 10/30/24 07:54 10/30/24 07:54 10/30/24 07:54 10/30/24 07:54 10/30/24 07:54 Narrative Exam GENERAL: no acute distress, AAO x3, walking around the room doing squats and stretching HEENT: Head AT/ NC. Mucous membranes moist. PERRL. NECK: Supple, no lymphadenopathy, no carotid bruits. CARDIOVASCULAR: RRR. Normal S1/S2, No m/r/g. No pitting edema of bilateral LEs. RESPIRATORY: CTAB. No wheezing, rhonchi, crackles. GASTROINTESTINAL: Abdomen soft, non tender no palpable masses. Bowel sounds present, no rebound no guarding MUSCULOSKELETAL:? No cyanosis or edema, no visible joint swelling. NEUROLOGICAL: CN II-XII grossly intact. No focal deficits. Sensation intact, symmetric. PSYCHIATRIC: Awake and alert, not agitated, normal mood and affect. SKIN: No obvious rashes, no jaundice, normal turgor. Discharge Plan Plan Patient Disposition: HOME (Self Care) Prescriptions/Referrals Prescriptions/Med Rec: Continued Zyrtec 10 mg capsule 10 mg PO QDAY PRN (Reason: hives) Referrals: Kirill Bahena DO [Primary Care Provider, Family Practice] Patient/Caregiver Discharge Instructions Other Discharge Activity Instructions:: Please continue with your home medications as prescribed. Please see your PCP and [facility] in 1 week for your pelvic cyst seen on imaging. Please return to the ED if your symptoms return. Education Materials: Abdominal Pain, Treating a Ruptured Ovarian Cyst Print Language: Bengali Stand Alone Forms: Charlee Award Info., Patient Portal Info Letter, Work/Release Restrictions Discharge Order Discharge Orders: Discharge (Routine); Ordered 10/30/24 Ordered By: Bella Hinojosa Quality Discharge Quality Measures VTE prophylaxis
[2024-10-30] MEDS: CALCIUM CARBONATE 600 MG TABLET PO (09:54)
--- NOTE | 2024-10-30 10:38 | PC.NURSE ---
Patient requested a regular breakfast. I ordered oatmeal and toast for patient. Patient wants to see if she tolerates her food with no abdominal pain
[2024-10-30 12:00] VITALS: BP 112/78; PULSE 67; RESP 16; TEMP 36.6; O2SAT 97
--- NOTE | 2024-10-30 13:13 | PD.SURPROG ---
Documentation for date of: 10/30/24 Subjective Subjective Narrative: Patient is seen and examined. Her abdominal pain resolved. She has had multiple bowel movements Exam Vital Signs Temp Pulse Resp BP Pulse Ox O2 Del Method 97.8 F 67 16 112/78 97 Room Air 10/30/24 12:00 10/30/24 12:00 10/30/24 12:00 10/30/24 12:00 10/30/24 12:00 10/30/24 12:00 Constitutional Constitutional: no acute distress Routine Abdominal Exam Abdominal: Present soft and normoactive bowel sounds; Absent tenderness or distended Assessment & Plan Assessment Additional comments: Abdominal pain resolved. Repeat CT scan did not show evidence of bowel ischemia or bowel obstruction Plan May discharge home
== END 2024-10-30 12:28 | disposition home or self-care (01) | DRG 393 ==
LOC: SERX 05:42 → SERHOLD 06:25 → S3SX 08:04
PROVIDERS: Admitting Provider Student in an Organized Health Care Education/Training Program; Emergency Provider Emergency Medicine; PCP Family Medicine; Visit Provider Student in an Organized Health Care Education/Training Program
DX: K55.9 Vascular disorder of intestine, unspecified (principal); K56.2 Volvulus; K21.9 Gastro-esophageal reflux disease without esophagitis; Z91.013 Allergy to seafood; L50.9 Urticaria, unspecified
CPT/HCPCS: 36415; 74176; 74177; 80053; 83605; 83735; 84100; 84145; 85025; 85610; 85730; 87040; 93225; 96361; 96365; 96375; 96376; 99284; A4649; A9577; J1171; J1200; J1885; J2270; J2405; J2470; J2543; J2765; J2919; J3010; J7030; J7042; Q9967; A9270

== ENCOUNTER → 2025-01-19 | Outpatient (CLI) | payer OTHER, SELFPAY ==
[2025-01-19 14:32] LABS: Alanine Aminotransferase 15 U/L (10-49); Albumin, Serum 4.6 gm/dL (3.5-5.0); Albumin/Globulin Ratio 1.6 (1.2-2.2); Alkaline Phosphatase 71 U/L (46-116); Anion Gap 9 (7-16); Aspartate Amino Transferase 20 U/L (0-34); BUN/Creatinine Ratio 19 Ratio (12-20); Bilirubin,Total 0.7 mg/dL (0.3-1.2); Blood Urea Nitrogen 19 mg/dL (9-23); Calcium 9.3 mg/dL (8.3-10.6); Calcium (Corrected) 9.3 mg/dL (8.5-10.1); Carbon Dioxide 27.9 mMol/L (20.0-31.0); Cardiac Risk Estimate 2.3 RATIO (3.7-5.6); Chloride 105 mMol/L (98-107); Cholesterol 174 mg/dL (132-200); Creatinine (Component) 1.0 mg/dL (0.6-1.3); Free T3 2.7 pg/mL (2.3-4.2); Free T4 (Free Thyroxine) 1.13 ng/dL (0.89-1.76); Globulin 2.8 gm/dL (2.3-3.5); Glucose 99 mg/dL (74-106); HDL Cholesterol 75 mg/dL (40-60); LDL Cholesterol,Calculated 90 mg/dL (0-130); Osmolality,Calculated 285 (275-295); Potassium 4.0 mMol/L (3.4-5.1); Sodium 142 mMol/L (136-145); Thyroid Stimulating Hormone 0.61 uIU/mL (0.55-4.78); Total Protein 7.4 gm/dL (5.7-8.2); Triglycerides 46 mg/dL (30-150); eGFR > 60 See Note
[2025-01-25 06:28] LABS: Thyroid Peroxidase Antibodies* 1 IU/mL (<9)
== END | disposition home or self-care (01) ==
LOC: COPL 13:21
PROVIDERS: PCP Internal Medicine; Referring Provider Internal Medicine; Visit Provider Internal Medicine
DX: Z00.00 Encounter for general adult medical examination without abnormal findings (principal)
CPT/HCPCS: 36415; 80053; 80061; 84439; 84443; 84481; 86376